=== PATIENT | female | born 1970 | race Caucasian/White ===

== ENCOUNTER → 2016-07-30 | Outpatient (REF) | payer OTHER ==
[~2016-07-30] MED LIST: AMLO5TAB2 PO; BENI40TA3 PO; CIPR500T3 PO; IBUP80TA PO; METO-207 PO; OMEP40CA2 PO; POTA99TA PO; RANI15TA PO; ROXI1TAB2 PO; TYLE650T30 PO
== END ==
LOC: M SMT 16:48
PROVIDERS: ATTEND Urology
DX: Q62.11 Congenital occlusion of ureteropelvic junction (principal)

== ENCOUNTER → 2016-08-13 | Outpatient (REF) | payer OTHER ==
[2016-08-13 19:08] LABS: BASO % 0.5 % (0.0-1.0); EOS # 0.4 K/mm3 (0.0-0.50); EOS % 5.6 % (0.0-3.0); LARGE UNSTAINED CELL # 0.1 K/mm3 (0.0-0.4); LARGE UNSTAINED CELL % 1.3 % (0.0-4.0); LYMPH # 2.1 K/mm3 (1.5-4.5); LYMPH % 26.2 % (24.0-44.0); MEAN CORPUSCULAR HEMOGLOBIN 35.5 pg (27.0-33.0); MEAN CORPUSCULAR HGB CONC 33.7 g/dl (32.0-36.5); MEAN CORPUSCULAR VOLUME 105.5 fl (80.0-96.0); MONO # 0.3 K/mm3 (0.0-0.8); MONO % 3.3 % (0.0-5.0); NEUTROPHILS # 5.2 K/mm3 (1.8-7.7); NEUTROPHILS % 63.2 % (36.0-66.0); PLATELET COUNT, AUTOMATED 331 k/mm3 (150-450); RED CELL DISTRIBUTION WIDTH 12.2 % (11.5-14.5); WHITE BLOOD COUNT 8.2 K/mm3 (4.0-10.0)
[2016-08-13 19:19] LABS: ALBUMIN 3.8 GM/DL (3.2-5.2); ALBUMIN/GLOBULIN RATIO 1.19 (1.00-1.93); ALKALINE PHOSPHATASE 54 U/L (45-117); ALT/SGPT 25 U/L (12-78); ANION GAP 6 MEQ/L (8-16); AST/SGOT 23 U/L (15-37); BILIRUBIN,TOTAL 0.6 MG/DL (0.2-1.0); BLOOD UREA NITROGEN 7 MG/DL (7-18); CALCIUM LEVEL 8.8 MG/DL (8.5-10.1); CARBON DIOXIDE LEVEL 29 MEQ/L (21-32); CHLORIDE LEVEL 101 MEQ/L (98-107); CHOLESTEROL LEVEL 146 MG/DL (<200); CREATININE FOR GFR 0.64 MG/DL (0.55-1.02); GLOMERULAR FILTRATION RATE > 60.0 (>58); GLUCOSE, FASTING 102 MG/DL (70-105); POTASSIUM SERUM 4.1 MEQ/L (3.5-5.1); SODIUM LEVEL 136 MEQ/L (136-145); TRIGLYCERIDES LEVEL 37 MG/DL (<150)
== END ==
LOC: M LAB REF 16:20
PROVIDERS: ATTEND Family Medicine
DX: Z00.00 Encounter for general adult medical examination without abnormal findings (principal); M54.2 Cervicalgia; K21.0 Gastro-esophageal reflux disease with esophagitis; N13.30 Unspecified hydronephrosis; Z72.0 Tobacco use; I10 Essential (primary) hypertension

== ENCOUNTER → 2017-02-12 | Outpatient (CLI) | payer OTHER ==
[~2017-02-12] MED LIST changes: +BENI40TA26 PO; -BENI40TA3 PO; +ISOVUE-370 76% 100ML VIAL (Q9967) As Ordered ONE; -METO-207 PO; +METO1TAB7 PO
--- NOTE | 2017-02-12 17:25 | REP ---
CT urogram: CT without and with IV contrast: Without oral contrast. History: Hydronephrosis with ureteral stricture. Comparison CT study April 13, 2015. CT contrast dose: 100 ml of intravenous Isovue 370. Findings: Preliminary digital assistant professor of biochemistry radiograph shows an IUD in the pelvis. Bowel gas pattern is normal. The lung bases are clear on axial CT images. There are clips in the gallbladder fossa. There is mild diffuse fatty infiltration of the liver. There are areas of focal fat infiltration on either side of the falciform ligament, unchanged. No focal hepatic mass lesion is seen. Gallbladder is surgically absent. Spleen is homogeneous in texture and normal in size. Small bilateral adrenal adenomas are again seen. Unchanged. No pancreatic lesion is seen. No retroperitoneal mass or adenopathy is observed. Vascular calcification is seen. The kidneys enhance symmetrically. There is mild right-sided hydronephrosis again seen, less prominent than on the April 13, 2015 study. Delayed scan images demonstrate a rounded appearance to the ureteropelvic junction on the right and mild pyelectasis. The right ureter is not dilated. The uterus is tipped to the right and unremarkable. No adnexal abnormality is seen. Urinary bladder is unremarkable. No urinary tract calculus is appreciated. Impression: Findings consistent with mild degree of ureteropelvic junction obstruction on the right, improved degree of hydronephrosis on the right compared to the April 13, [address] study[address] IUD in place. Fatty infiltration of the liver. Post cholecystectomy. Stable bilateral adrenal adenomas. Signed by Rober Allen MD 02/12/2017 05:30 P
== END ==
LOC: M RAD 14:03
PROVIDERS: ATTEND Urology
DX: N13.1 Hydronephrosis with ureteral stricture, not elsewhere classified (principal); Z97.5 Presence of (intrauterine) contraceptive device; K76.0 Fatty (change of) liver, not elsewhere classified
CPT/HCPCS: 74178; Q9967

== ENCOUNTER 2018-05-03 15:03 | Outpatient (RCR) | payer OTHER ==
--- NOTE | 2018-04-14 15:09 | CARECAPL ---
Assessment Account #s: Initial Assessment General Diagnoses: Stent Date of event: Feb 17, 2018 Physician: Rosio Guerrier MD Allergies: Coded Allergies: Sulfa Antibiotics (Verified Allergy, Unknown, 11/14/14) Date Entered Program: Apr 14, 2018 Risk strat for cardiac event: Low Exercise Date: Apr 14, 2018 Assessment: Initial Assessment Exercise Prescription Plan TO EDUCATE AND EXERCISE THROUGH MONITORED EXERCISE PLAN Modalities initiated: Nustep (METS=2.5/RPE=2), Arm Aerometer (METS=2.8/RPE=3), Recumbent Bike (METS=3.4/RPE=3) Frequency: 3 Duration (Minutes) 30-60 minutes total exercise a day. 10-15 work intervals in minutes. 5 MINUTES PRN rest intervals in minutes. Functional Capacity Goal Sustained Metabolic Equivalent of a task (MET) goal of 4.25-5.0 for 15-20 minutes. Intensity: 3-Moderate Progression (METS) Increase by: 0.5 METS every: 5 sessions TOLERATED Angina with ex: No Target Heart Rate +35-40 BASED ON BETA DENIA THERAPY Resistance Training: Yes Weight (pounds): 1 Reps: 12-15 Hypertension: Yes Hypertension controlled with: Medication Resting 131/85 Peak Exercise BP 142/90 Medications Scheduled (Multivitamins), 1 CAP PO DAILY, (Reported) Amlodipine Besylate (Amlodipine Besylate), 5 MG PO DAILY, (Reported) Aspirin (Aspirin 81), 81 MG PO DAILY, (Reported) Atorvastatin Calcium (Lipitor), 40 MG PO DAILY, (Reported) Cholecalciferol (Vitamin D3), 1 TAB PO DAILY, (Reported) Clopidogrel Bisulfate (Plavix), 75 MG PO DAILY, (Reported) Ginkgo Biloba Extract (Ginkgo Biloba), 120 MG PO DAILY, (Reported) Methocarbamol (Robaxin), 500 MG PO BID, (Reported) Metoprolol Succinate (Metoprolol Succinate ER), 1.5 TAB PO DAILY, (Reported) Nicotine (Nicotine Transdermal Syst 21-14-7 mg/24Hr), 1 PATCH TOP DAILY, (Reported) Nitroglycerin (Nitroglycerin), 0.4 MG SL ASDIRECTED, (Reported) Olmesartan Medoxomil (Benicar), 40 MG PO DAILY, (Reported) Omeprazole (Omeprazole), 40 MG PO DAILY, (Reported) Potassium (Potassium), 99 MG PO DAILY, (Reported) Potassium Chloride (K-Tab), 1 TAB PO DAILY, (Reported) Ranitidine Hcl (Zantac), 150 MG PO BID, (Reported) Scheduled PRN Acetaminophen (Tylenol 8 Hour), 650 MG PO Q8HP PRN for PAIN, (Reported) Oxycodone HCl (Roxicodone), 5 MG PO Q6HP PRN for PAIN, (Reported) Discontinued Medications Ciprofloxacin HCl (Ciprofloxacin HCl), 500 MG PO BID, (Reported) Discontinued Reason: Pt states not taking Ibuprofen (Ibuprofen), 800 MG PO PRN, (Reported) Discontinued Reason: Pt states not taking Current BP 132/84 Med Change: Yes Intervention Home exercise: Type (NONE CURRENTLY) Resistance Training: Yes Education: Self pulse, Ex safety, S/S to report, Low NA diet, BP medication, RPE Scale, Equipment orientation, warm up/cool down, Understand BP, Physical Active Target Goals Individual exercise Rx (1) BP 140/90 or 130/80 if DM or CKD (1) Aerobic active 30+min 5 days per week (1) Nutrition Date: Apr 14, 2018 Assessment: Initial Assessment Lipid- med/supplement LIPITOR 40 MG DAILY Med Change: No Diabetes Diabetes: No Monitor Blood Sugar at home: No Medication Change: No Blood sugar in range: No Weight Management Weight (lbs): 145.4 Height (inches): 64.5 Waist Circumference (Inches): 37 BMI: 24.6 Special Diet: regular Vitamin/Supplements: Multivitamin, Vitamin D Alcohol: special Diet Access Tool: Rate your plate Score: 44 Current Weight (pounds): 145.4 Intervention Counter Helper Consult: No Nurse/patient discussion: Yes Dietary Goals TO TRY TO MAKE BETTER HEART HEALTHY CHOICES Diet Class: Yes Referral to Diabetes education: No Referral to lipid clinic: No Referral to weight mangement p: No Education Eating Healthy Target goal LDL-C<100 if triglycerides are >200 Non-HDL-C should be <130 (1) LDL-C<70 for high risk patients (4) HbA1c<7% (1) BMI<25 Waist cir<40in M/<35in F (1) Education Date: Apr 14, 2018 Assessment: Initial Assessment Knowledge Test Score: 10 Family Support: Yes Tobacco use: Yes Tobacco Use Cigarettes smoked per day: 8 (HOPING TO QUIT SOON, HAS BEEN DECREASING AMOUNT PER DAY) Smokeless tobacco: No Intervention Referral to smoking cessation: No Individual education and couns: Yes Tobacco Adjunct: No Education class schedule given: No Attended education classes: No Education: tobacco triggers, CAD, Risk factors, med compliance, cardiac A&P, Angina S/S, Sexuality Target Goals Complete cessation of tobacco use (1). Psychosocial Date: Apr 14, 2018 Assessment: Initial Assessment Psych Test (Initial/Discharge) Tool Used: CESD Score: 10 Intervention Physician Consult: No Physician Referral: No Med Change: No Stress Management Class: No Uses Stress Management Skills: Yes Education Education: Coping Techniques, S/S depression, Relaxation Techniques Target Goal Assess presence or absence of depression using a valid screening tool (1). Maximize coping skills (2). Positive support system (2). Patient/Program Goal Preventative Medication: Yes Aspirin, Yes Clopidogrel, Yes Beta blockade, Yes Statin/OTR lipid Lowering Fall Risk Assess: No Provider Assessment Session Number: 1 Zach Armstrong RN Apr 14, 2018 15:09
[~2018-05-03 15:03] MED LIST changes: -AMLO5TAB2 PO; +AMLO5TAB6 PO; +ASPI1TAB PO; +GINK120C3 PO; -ISOVUE-370 76% 100ML VIAL (Q9967) As Ordered ONE; +K-TA1TAB PO; +LIPI20TA PO; +MULTCAP PO; +NICO1KIT TOP; +NITR0.4S14 SL; +PLAV1TAB2 PO; +ROBA500T PO; +VITA-122 PO
== END 2018-05-06 ==
LOC: M CR 15:03
PROVIDERS: ATTEND Internal Medicine Interventional Cardiology
DX: Z95.5 Presence of coronary angioplasty implant and graft (principal)

== ENCOUNTER 2018-06-02 15:10 | Outpatient (RCR) | payer OTHER | END 2018-06-03 | LOC: M CR 15:10 | PROVIDERS: ATTEND Internal Medicine Interventional Cardiology | DX: Z95.5 Presence of coronary angioplasty implant and graft (principal) ==

== ENCOUNTER 2018-06-30 15:08 | Outpatient (RCR) | payer OTHER ==
--- NOTE | 2018-06-04 14:09 | CARECAPL ---
Assessment Account #s: Re-Assessment II General Diagnoses: Stent Date of event: Feb 17, 2018 Physician: Ashish Wharton Allergies: Coded Allergies: Sulfa Antibiotics (Verified Allergy, Unknown, 11/14/14) Date Entered Program: Apr 14, 2018 Risk strat for cardiac event: Low Exercise Date: Jun 04, 2018 Assessment: Re-Assessment II Exercise Prescription Modalities initiated: Nustep, Arm Aerometer, Dumbells, Recumbent Bike Frequency: 2 Duration (Minutes) minutes total exercise a day. work intervals in minutes. rest intervals in minutes. Functional Capacity Goal Sustained Metabolic Equivalent of a task (MET) goal of for minutes. Intensity: 3-Moderate Progression (METS) Increase by: METS every: sessions Angina with ex: No Resistance Training: Yes Weight (pounds): 2 Medications Scheduled (Multivitamins), 1 CAP PO DAILY, (Reported) Amlodipine Besylate (Amlodipine Besylate), 5 MG PO DAILY, (Reported) Aspirin (Aspirin 81), 81 MG PO DAILY, (Reported) Atorvastatin Calcium (Lipitor), 40 MG PO DAILY, (Reported) Cholecalciferol (Vitamin D3), 1 TAB PO DAILY, (Reported) Clopidogrel Bisulfate (Plavix), 75 MG PO DAILY, (Reported) Ginkgo Biloba Extract (Ginkgo Biloba), 120 MG PO DAILY, (Reported) Methocarbamol (Robaxin), 500 MG PO BID, (Reported) Metoprolol Succinate (Metoprolol Succinate ER), 1.5 TAB PO DAILY, (Reported) Nicotine (Nicotine Transdermal Syst 21-14-7 mg/24Hr), 1 PATCH TOP DAILY, (Report ed) Nitroglycerin (Nitroglycerin), 0.4 MG SL ASDIRECTED, (Reported) Olmesartan Medoxomil (Benicar), 40 MG PO DAILY, (Reported) Omeprazole (Omeprazole), 40 MG PO DAILY, (Reported) Potassium (Potassium), 99 MG PO DAILY, (Reported) Potassium Chloride (K-Tab), 1 TAB PO DAILY, (Reported) Ranitidine Hcl (Zantac), 150 MG PO BID, (Reported) Scheduled PRN Acetaminophen (Tylenol 8 Hour), 650 MG PO Q8HP PRN for PAIN, (Reported) Oxycodone HCl (Roxicodone), 5 MG PO Q6HP PRN for PAIN, (Reported) Current BP 138/82 Med Change: No Target Goals Individual exercise Rx (1) BP 140/90 or 130/80 if DM or CKD (1) Aerobic active 30+min 5 days per week (1) Nutrition Date: Jun 04, 2018 Assessment: Re-Assessment II Current Weight (pounds): 146.6 Intervention N[employer]ious Weeds And Pest Inspector Consult: Yes Nurse/patient discussion: Yes Diet Class: Yes Education Eating Healthy Target goal LDL-C<100 if triglycerides are >200 Non-HDL-C should be <130 (1) LDL-C<70 for high risk patients (4) HbA1c<7% (1) BMI<25 Waist cir<40in M/<35in F (1) Education Date: Jun 04, 2018 Assessment: Re-Assessment II Family Support: No ( smokes) Tobacco use: Yes Tobacco Use Cigarettes smoked per day: 20 Smokeless tobacco: No Intervention Individual education and couns: Yes Tobacco Adjunct: Yes Education class schedule given: Yes Attended education classes: Yes Education: tobacco triggers, CAD, Risk factors, med compliance, cardiac A&P, Angina S/S, Sexuality Target Goals Complete cessation of tobacco use (1). Psychosocial Date: Jun 04, 2018 Assessment: Re-Assessment II Stress Management Class: Yes Uses Stress Management Skills: Yes Education Education: Coping Techniques, S/S depression, Relaxation Techniques Target Goal Assess presence or absence of depression using a valid screening tool (1). Maximize coping skills (2). Positive support system (2). Provider Assessment Session Number: 7 Provider Assessment: No changes Milla Larios RN Jun 04, 2018 14:09
--- NOTE | 2018-06-28 09:38 | CARECAPL ---
Assessment Account #s: Re-Assessment II (reassessment III) General Diagnoses: Stent Date of event: Feb 17, 2018 Physician: Ashish Wharton Allergies: Coded Allergies: Sulfa Antibiotics (Verified Allergy, Unknown, 11/14/14) Date Entered Program: Apr 14, 2018 Risk strat for cardiac event: Low Exercise Date: Jun 28, 2018 Assessment: Re-Assessment II (reassessment III) Exercise Prescription Modalities initiated: Treadmill, Nustep, Arm Aerometer, Dumbells, Recumbent Bike Frequency: 2 Duration (Minutes) minutes total exercise a day. work intervals in minutes. rest intervals in minutes. Functional Capacity Goal Sustained Metabolic Equivalent of a task (MET) goal of for minutes. Intensity: 3-Moderate Progression (METS) Increase by: METS every: sessions Angina with ex: No Resistance Training: Yes Weight (pounds): 4 Reps: 8-12 Medications Scheduled (Multivitamins), 1 CAP PO DAILY, (Reported) Amlodipine Besylate (Amlodipine Besylate), 5 MG PO DAILY, (Reported) Aspirin (Aspirin 81), 81 MG PO DAILY, (Reported) Atorvastatin Calcium (Lipitor), 40 MG PO DAILY, (Reported) Cholecalciferol (Vitamin D3), 1 TAB PO DAILY, (Reported) Clopidogrel Bisulfate (Plavix), 75 MG PO DAILY, (Reported) Ginkgo Biloba Extract (Ginkgo Biloba), 120 MG PO DAILY, (Reported) Methocarbamol (Robaxin), 500 MG PO BID, (Reported) Metoprolol Succinate (Metoprolol Succinate ER), 1.5 TAB PO DAILY, (Reported) Nicotine (Nicotine Transdermal Syst 21-14-7 mg/24Hr), 1 PATCH TOP DAILY, (Reported) Nitroglycerin (Nitroglycerin), 0.4 MG SL ASDIRECTED, (Reported) Olmesartan Medoxomil (Benicar), 40 MG PO DAILY, (Reported) Omeprazole (Omeprazole), 40 MG PO DAILY, (Reported) Potassium (Potassium), 99 MG PO DAILY, (Reported) Potassium Chloride (K-Tab), 1 TAB PO DAILY, (Reported) Ranitidine Hcl (Zantac), 150 MG PO BID, (Reported) Scheduled PRN Acetaminophen (Tylenol 8 Hour), 650 MG PO Q8HP PRN for PAIN, (Reported) Oxycodone HCl (Roxicodone), 5 MG PO Q6HP PRN for PAIN, (Reported) Current BP 126/76 Med Change: No Target Goals Individual exercise Rx (1) BP 140/90 or 130/80 if DM or CKD (1) Aerobic active 30+min 5 days per week (1) Nutrition Date: Jun 28, 2018 Assessment: Re-Assessment II (reassessment III) Current Weight (pounds): 146.6 Intervention Diet Class: Yes Education Eating Healthy Target goal LDL-C<100 if triglycerides are >200 Non-HDL-C should be <130 (1) LDL-C<70 for high risk patients (4) HbA1c<7% (1) BMI<25 Waist cir<40in M/<35in F (1) Education Date: Jun 28, 2018 Assessment: Re-Assessment II (reassessment III) Intervention Attended education classes: Yes Education: tobacco triggers, CAD, med compliance, cardiac A&P, Angina S/S, Sexuality Education Goals Met: Yes Target Goals Complete cessation of tobacco use (1). Psychosocial Date: Jun 28, 2018 Assessment: Re-Assessment II (reassessment III) Stress Management Class: Yes Uses Stress Management Skills: Yes Education Education: Coping Techniques, S/S depression, Relaxation Techniques Target Goal Assess presence or absence of depression using a valid screening tool (1). Maximize coping skills (2). Positive support system (2). Provider Assessment Session Number: 11 Provider Assessment: No changes Milla Larios RN Jun 28, 2018 09:09
== END 2018-07-04 ==
LOC: M CR 15:08
PROVIDERS: ATTEND Internal Medicine Interventional Cardiology
DX: Z95.5 Presence of coronary angioplasty implant and graft (principal)

== ENCOUNTER → 2021-10-14 | Outpatient (CLI) | payer OTHER ==
[~2021-10-14] MED LIST changes: +AMLO1TAB24 PO; -AMLO5TAB6 PO; -ASPI1TAB PO; +ASPI81TA26 PO; +ATOR40TA75 PO; -OMEP40CA2 PO; +OMEP40CA4 PO; +POTASSIUM PO; +VITMTA PO
== END ==
LOC: M LABSMTC 09:45
PROVIDERS: ATTEND Anesthesiology
DX: Z20.828 Contact with and (suspected) exposure to other viral communicable diseases (principal); Z11.59 Encounter for screening for other viral diseases

== ENCOUNTER 2021-10-17 08:26 | Day surgery (SDC) | payer OTHER ==
[~2021-10-17] VITALS: Ht 162.6 cm; Wt 67.6 kg
[~2021-10-17 08:26] MED LIST changes: +NS 1,000 ML IV ONE
[2021-10-17] MEDS ORDERED: propofoL 200 MG/20 ML VIAL As Ordered ONE (10:08)
[2021-10-17] MEDS ORDERED: LIDOCAINE 2% INJ 100 MG/5 ML SYRINGE As Ordered ONE (10:13)
[2021-10-17 10:46] VITALS: BP 125/83
== END 2021-10-17 10:51 | disposition home or self-care (01) ==
LOC: M OPP 08:26
PROVIDERS: ATTEND Surgery
DX: Z12.11 Encounter for screening for malignant neoplasm of colon (principal); D12.6 Benign neoplasm of colon, unspecified; K57.30 Diverticulosis of large intestine without perforation or abscess without bleeding; K29.70 Gastritis, unspecified, without bleeding; K29.80 Duodenitis without bleeding; R10.13 Epigastric pain; F17.210 Nicotine dependence, cigarettes, uncomplicated; Z79.02 Long term (current) use of antithrombotics/antiplatelets; Z79.899 Other long term (current) drug therapy; Z79.82 Long term (current) use of aspirin; Z88.2 Allergy status to sulfonamides

== ENCOUNTER 2022-06-01 13:09 | Inpatient (IN) | payer OTHER ==
[~2022-06-01] VITALS: Ht 162.6 cm; Wt 67.9 kg
[~2022-06-01 13:09] MED LIST changes: -BENI40TA26 PO; +CLOP75TA99 PO; -NS 1,000 ML IV ONE; +OLME40TA56 PO; -PLAV1TAB2 PO
[2022-06-01] MEDS ORDERED: ONDANSETRON 4MG 2ML VIAL IV PRN (13:50)
[2022-06-01 14:27] LABS: HEMATOCRIT 27.6 % (36.0-47.0); HEMOGLOBIN 9.4 g/dl (12.0-15.5); MEAN CORPUSCULAR HEMOGLOBIN 34.6 pg (27.0-33.0); MEAN CORPUSCULAR HGB CONC 34.1 g/dl (32.0-36.5); MEAN CORPUSCULAR VOLUME 101.5 fl (80.0-96.0); PLATELET COUNT, AUTOMATED 280 10^3/uL (150-450); RED BLOOD COUNT 2.72 10^6/uL (4.00-5.40); WHITE BLOOD COUNT 12.2 10^3/uL (4.0-10.0)
[2022-06-01 14:41] LABS: INR 1.11; PROTHROMBIN TIME 14.5 SECONDS (12.5-14.5)
[2022-06-01 14:53] LABS: ALBUMIN 2.8 G/DL (3.2-5.2); ALKALINE PHOSPHATASE 48 U/L (46-116); ALT/SGPT 15 U/L (7.0-40); AST/SGOT 17 U/L (<34); BILIRUBIN,TOTAL 0.3 MG/DL (0.3-1.2); BLOOD UREA NITROGEN 46 MG/DL (9-23); CALCIUM LEVEL 8.3 MG/DL (8.5-10.1); CARBON DIOXIDE LEVEL 26 MMOL/L (20-31); CHLORIDE LEVEL 107 MMOL/L (98-107); CREATININE FOR GFR 0.95 MG/DL (0.55-1.30); GLOMERULAR FILTRATION RATE > 60.0 (>51); GLUCOSE, FASTING 90 MG/DL (60-100); POTASSIUM SERUM 4.1 MMOL/L (3.5-5.1); SODIUM LEVEL 140 MMOL/L (136-145); TOTAL PROTEIN 5.5 G/DL (5.7-8.2)
[2022-06-01 15:38] LABS: MAGNESIUM LEVEL 1.5 MG/DL (1.8-2.4)
[2022-06-01 15:39] LABS: IRON (FE) 69 UG/DL (50-170)
[2022-06-01 15:40] LABS: PERCENT SATURATION 31.1 % (13.2-45.0); TOTAL IRON BINDING CAPACITY 222 UG/DL (250-425)
[2022-06-01 15:41] LABS: FERRITIN 170.7 NG/ML (7.3-270.7)
[2022-06-01 15:42] LABS: VITAMIN B12 LEVEL 280 PG/ML (211-911)
[2022-06-01 15:45] LABS: FOLATE 19.96 NG/ML (>5.4)
[2022-06-01] MEDS ORDERED: PANT40TA29 PO (15:54)
[2022-06-01] MEDS ORDERED: POTA99CA2 PO (15:54)
[2022-06-01 15:55] VITALS: BP 121/69
[2022-06-01] MEDS ORDERED: HOME MED LIST COMPLETE! XX SCH (15:55)
[2022-06-01] MEDS ORDERED: MAG SULF 1GM/100ML (MAG RUN) 1 GM in IV 1 EA IV ONE (16:00)
[2022-06-01] MEDS ORDERED: PANTOPRAZOLE 40MG VIAL IV SCH (17:00)
[2022-06-01] MEDS: NICOTINE 21MG/24HR 1 EA TRANSDERMAL TD SCH (17:22)
[2022-06-01 18:33] LABS: HEMATOCRIT 27.1 % (36.0-47.0); HEMOGLOBIN 9.3 g/dl (12.0-15.5)
[2022-06-01 20:33] VITALS: BP 119/70
[2022-06-01] MEDS ORDERED: MORPHINE 2 MG/ML 1ML VIAL IV PRN (20:35)
[2022-06-01 21:17] VITALS: BP 119/70
[2022-06-01] MEDS: SUCRALFATE SUSP 1GM/10ML UD PO SCH (22:42)
[2022-06-02 00:49] LABS: HEMATOCRIT 23.6 % (36.0-47.0); HEMOGLOBIN 8.1 g/dl (12.0-15.5)
[2022-06-02 05:30] VITALS: BP 115/70
[2022-06-02] MEDS: SUCRALFATE SUSP 1GM/10ML UD PO SCH ×5 (05:40→20:32)
[2022-06-02] MEDS: PANTOPRAZOLE 40MG VIAL IV SCH ×2 (05:40→17:38)
[2022-06-02 06:46] LABS: HEMATOCRIT 25.5 % (36.0-47.0); HEMOGLOBIN 8.8 g/dl (12.0-15.5)
[2022-06-02 07:09] LABS: MAGNESIUM LEVEL 1.7 MG/DL (1.8-2.4)
[2022-06-02] MEDS ORDERED: MAG SULF 1GM/100ML (MAG RUN) 1 GM in IV 1 EA IV ONE (07:15)
[2022-06-02] MEDS ORDERED: D5W/0.9% SODIUM CHLORIDE 1,000 ML IV SCH (07:55)
[2022-06-02] MEDS: cefTRIAXone SOD 1 GM in D5W MINI-BAG PLUS 50 ML IV SCH (08:36)
[2022-06-02] MEDS: ACETAMINOPHEN TAB 650MG DOSE (2X325MG) PO PRN ×2 (08:43→17:39)
[2022-06-02] MEDS: ASPIRIN 81MG ENTERIC TABLET PO SCH (08:44)
[2022-06-02] MEDS: NICOTINE 21MG/24HR 1 EA TRANSDERMAL TD SCH (09:28)
[2022-06-02] MEDS: ATORVASTATIN 20 MG TAB PO SCH (09:28)
[2022-06-02 11:16] LABS: BLOOD UREA NITROGEN 26 MG/DL (9-23); CALCIUM LEVEL 7.9 MG/DL (8.5-10.1); CARBON DIOXIDE LEVEL 28 MMOL/L (20-31); CHLORIDE LEVEL 107 MMOL/L (98-107); CREATININE FOR GFR 0.87 MG/DL (0.55-1.30); GLOMERULAR FILTRATION RATE > 60.0 (>51); GLUCOSE, FASTING 112 MG/DL (60-100); POTASSIUM SERUM 3.2 MMOL/L (3.5-5.1); SODIUM LEVEL 140 MMOL/L (136-145)
[2022-06-02 11:59] LABS: HEMATOCRIT 26.9 % (36.0-47.0); MEAN CORPUSCULAR HEMOGLOBIN 34.4 pg (27.0-33.0); MEAN CORPUSCULAR HGB CONC 33.5 g/dl (32.0-36.5); MEAN CORPUSCULAR VOLUME 102.7 fl (80.0-96.0); PLATELET COUNT, AUTOMATED 286 10^3/uL (150-450); RED BLOOD COUNT 2.62 10^6/uL (4.00-5.40); WHITE BLOOD COUNT 8.6 10^3/uL (4.0-10.0)
[2022-06-02] MEDS: KCL 40MEQ IN D5/NS 1000ML 1,000 ML IV SCH (12:54)
[2022-06-02 14:00] VITALS: BP 110/70
[2022-06-02 18:17] LABS: HEMATOCRIT 25.8 % (36.0-47.0); HEMOGLOBIN 8.7 g/dl (12.0-15.5)
[2022-06-02 19:39] VITALS: BP 109/70
[2022-06-03 00:24] LABS: HEMATOCRIT 24.1 % (36.0-47.0); HEMOGLOBIN 8.1 g/dl (12.0-15.5)
[2022-06-03] MEDS: KCL 40MEQ IN D5/NS 1000ML 1,000 ML IV SCH ×2 (03:31→17:11)
[2022-06-03] MEDS: PANTOPRAZOLE 40MG VIAL IV SCH ×2 (05:22→17:12)
[2022-06-03 06:02] VITALS: BP 115/74
[2022-06-03 06:31] LABS: BASO # 0.1 10^3/uL (0.0-0.2); BASO % 0.8 % (0.0-1.0); EOS # 0.2 10^3/uL (0.0-0.5); EOS % 2.7 % (0.0-3.0); HEMATOCRIT 24.2 % (36.0-47.0); HEMOGLOBIN 8.1 g/dl (12.0-15.5); LYMPH # 2.9 10^3/uL (1.5-5.0); LYMPH % 37.8 % (24.0-44.0); MEAN CORPUSCULAR HEMOGLOBIN 34.5 pg (27.0-33.0); MEAN CORPUSCULAR HGB CONC 33.5 g/dl (32.0-36.5); MONO # 0.4 10^3/uL (0.0-0.8); MONO % 5.5 % (2.0-8.0); NEUTROPHILS # 4.1 10^3/uL (1.5-8.5); NEUTROPHILS % 52.9 % (36.0-66.0); PLATELET COUNT, AUTOMATED 278 10^3/uL (150-450); RED BLOOD COUNT 2.35 10^6/uL (4.00-5.40); WHITE BLOOD COUNT 7.8 10^3/uL (4.0-10.0)
[2022-06-03 07:03] LABS: BLOOD UREA NITROGEN 10 MG/DL (9-23); CALCIUM LEVEL 7.7 MG/DL (8.5-10.1); CARBON DIOXIDE LEVEL 27 MMOL/L (20-31); CHLORIDE LEVEL 108 MMOL/L (98-107); GLOMERULAR FILTRATION RATE > 60.0 (>51); GLUCOSE, FASTING 105 MG/DL (60-100); POTASSIUM SERUM 3.7 MMOL/L (3.5-5.1); SODIUM LEVEL 141 MMOL/L (136-145)
[2022-06-03] MEDS: cefTRIAXone SOD 1 GM in D5W MINI-BAG PLUS 50 ML IV SCH (08:20)
[2022-06-03] MEDS: SUCRALFATE SUSP 1GM/10ML UD PO SCH ×4 (08:20→20:04)
[2022-06-03] MEDS: ASPIRIN 81MG ENTERIC TABLET PO SCH (08:21)
[2022-06-03] MEDS: ATORVASTATIN 20 MG TAB PO SCH (08:21)
[2022-06-03] MEDS: NICOTINE 21MG/24HR 1 EA TRANSDERMAL TD SCH (08:21)
[2022-06-03 12:22] LABS: HEMATOCRIT 25.8 % (36.0-47.0); HEMOGLOBIN 8.7 g/dl (12.0-15.5)
[2022-06-03 14:00] VITALS: BP 115/78
[2022-06-03 22:00] VITALS: BP 117/78
[2022-06-04] MEDS: ACETAMINOPHEN TAB 650MG DOSE (2X325MG) PO PRN (02:16)
[2022-06-04] MEDS: PANTOPRAZOLE 40MG VIAL IV SCH (05:23)
[2022-06-04 05:47] LABS: BASO # 0.1 10^3/uL (0.0-0.2); BASO % 0.5 % (0.0-1.0); EOS # 0.3 10^3/uL (0.0-0.5); EOS % 2.8 % (0.0-3.0); HEMATOCRIT 27.4 % (36.0-47.0); HEMOGLOBIN 8.8 g/dl (12.0-15.5); LYMPH # 4.1 10^3/uL (1.5-5.0); LYMPH % 41.4 % (24.0-44.0); MEAN CORPUSCULAR HEMOGLOBIN 33.8 pg (27.0-33.0); MEAN CORPUSCULAR HGB CONC 32.1 g/dl (32.0-36.5); MEAN CORPUSCULAR VOLUME 105.4 fl (80.0-96.0); MONO # 0.5 10^3/uL (0.0-0.8); MONO % 5.3 % (2.0-8.0); NEUTROPHILS % 49.8 % (36.0-66.0); PLATELET COUNT, AUTOMATED 313 10^3/uL (150-450)
[2022-06-04 06:00] VITALS: BP 121/76
[2022-06-04] MEDS ORDERED: CIPROFLOXACIN 500MG TABLET PO SCH (06:00)
[2022-06-04 06:14] LABS: BLOOD UREA NITROGEN 7 MG/DL (9-23); CALCIUM LEVEL 8.2 MG/DL (8.5-10.1); CARBON DIOXIDE LEVEL 30 MMOL/L (20-31); CHLORIDE LEVEL 108 MMOL/L (98-107); CREATININE FOR GFR 0.76 MG/DL (0.55-1.30); GLOMERULAR FILTRATION RATE > 60.0 (>51); GLUCOSE, FASTING 103 MG/DL (60-100); POTASSIUM SERUM 4.5 MMOL/L (3.5-5.1); SODIUM LEVEL 141 MMOL/L (136-145)
[2022-06-04 07:40] VITALS: BP 131/86
[2022-06-04] MEDS: SUCRALFATE SUSP 1GM/10ML UD PO SCH ×2 (08:01→11:14)
[2022-06-04] MEDS: cefTRIAXone SOD 1 GM in D5W MINI-BAG PLUS 50 ML IV SCH (08:02)
[2022-06-04] MEDS: ATORVASTATIN 20 MG TAB PO SCH (08:02)
[2022-06-04] MEDS: ASPIRIN 81MG ENTERIC TABLET PO SCH (08:02)
[2022-06-04] MEDS: KCL 40MEQ IN D5/NS 1000ML 1,000 ML IV SCH (08:03)
[2022-06-04] MEDS: NICOTINE 21MG/24HR 1 EA TRANSDERMAL TD SCH (08:25)
[2022-06-04] MEDS ORDERED: BACI1CAP PO (08:32)
[2022-06-04] MEDS ORDERED: CIPR-249 PO (08:32)
[2022-06-04] MEDS ORDERED: PROT1TAB2 PO (08:32)
[2022-06-04] MEDS ORDERED: SUCR1ORA PO (08:32)
[2022-06-04] MEDS ORDERED: NICO21PAT TD (08:32)
[2022-06-04 12:00] VITALS: BP 123/84
== END 2022-06-04 12:51 | disposition home or self-care (01) | DRG 811 ==
LOC: M ED 13:09 → EDBD 13:09 → M ED INP 13:36 → ENRESERV 14:24 → M MSPAV 15:50
PROVIDERS: ADMIT Internal Medicine Nephrology; ATTEND General Practice
DX: D62 Acute posthemorrhagic anemia (principal); K57.93 Diverticulitis of intestine, part unspecified, without perforation or abscess with bleeding; K27.4 Chronic or unspecified peptic ulcer, site unspecified, with hemorrhage; N39.0 Urinary tract infection, site not specified; I25.10 Atherosclerotic heart disease of native coronary artery without angina pectoris; Z95.2 Presence of prosthetic heart valve; I10 Essential (primary) hypertension; R73.03 Prediabetes; E78.5 Hyperlipidemia, unspecified; Z88.2 Allergy status to sulfonamides; Z79.899 Other long term (current) drug therapy; Z79.82 Long term (current) use of aspirin; K21.9 Gastro-esophageal reflux disease without esophagitis; F41.9 Anxiety disorder, unspecified; F32.A Depression, unspecified; M19.90 Unspecified osteoarthritis, unspecified site; F17.200 Nicotine dependence, unspecified, uncomplicated; F10.10 Alcohol abuse, uncomplicated

== ENCOUNTER 2022-08-07 07:11 | Day surgery (SDC) | payer OTHER ==
[~2022-08-07] VITALS: Ht 162.6 cm; Wt 67.5 kg
[~2022-08-07 07:11] MED LIST changes: +BACI1CAP PO; +CIPR-249 PO; +CLOP75TA2 PO; +NICO21PAT TD; +NS 1,000 ML IV ONE; +PANT40TA29 PO; +POTA99CA2 PO; +PROT1TAB2 PO; +SUCR1ORA PO
[2022-08-07] MEDS ORDERED: propofoL 200 MG/20 ML VIAL As Ordered ONE (07:51)
[2022-08-07] MEDS ORDERED: fentaNYL 100 MCG/2 ML INJECTION As Ordered ONE (07:51)
[2022-08-07] MEDS ORDERED: LIDOCAINE 2% 100MG/5ML SDV (FOR ANES.) As Ordered ONE (07:51)
[2022-08-07 08:45] VITALS: BP 145/80
== END 2022-08-07 08:52 | disposition home or self-care (01) ==
LOC: M OPP 07:11
PROVIDERS: ATTEND Surgery
DX: K29.70 Gastritis, unspecified, without bleeding (principal); K31.89 Other diseases of stomach and duodenum; K44.9 Diaphragmatic hernia without obstruction or gangrene; F17.200 Nicotine dependence, unspecified, uncomplicated; Z79.02 Long term (current) use of antithrombotics/antiplatelets; Z79.82 Long term (current) use of aspirin; Z79.899 Other long term (current) drug therapy
CPT/HCPCS: 43239; 88305; J3010